=== PATIENT | male | born 1990 | race African-American/Black ===

== ENCOUNTER 2018-05-04 00:40 | Emergency (ER) | payer SELFPAY ==
[~2018-05-04] VITALS: Ht 182.8 cm; Wt 102.1 kg
== END 2018-05-04 00:51 | disposition home or self-care (01) ==
LOC: ED 00:40
DX: M79.662 Pain in left lower leg (principal)

== ENCOUNTER 2018-06-18 17:55 | Emergency (ER) | payer OTHER ==
[~2018-06-18] VITALS: Ht 182.8 cm; Wt 103.9 kg
--- NOTE | ~2018-06-18 | EKG ---
[place], [place] ELECTROCARDIOGRAM REPORT NAME: CRYSTAL RUBIN UNIT #: [id number] ROOM: DOCTOR: EPIPHANY DRAFT REPORT BIRTHDATE: [birth year] [facility] Test Date: 2018-06-18 Test Time: 17:58:59 Pat Name: CRYSTAL RUBIN Department: Room: Gender: Business Solution Analyst: María Alicia : 1990 Requested By: CHERRI PETER Order Number: [id number] Reading MD: Yohana Hendricks MD Measurements Intervals [place] Rate: 93 P: 82 FL: 141 QRS: 71 QRSD: 81 T: 35 QT: 325 QTc: 405 Interpretive Statements Sinus rhythm Left atrial enlargement ST elev, probable normal early repol pattern Baseline wander in lead(s) III No previous ECG available for comparison Electronically Signed On 06-19-2018 12:03:52 PST by Yohana Hendricks MD CM:EKGRPT:ELECTROCARDIOGRAM REPORT [id number] CHERRI PETER EPIPHANY DRAFT REPORT CHERRI PETER
[2018-06-18 18:17] LABS: BASO # 0.1 10*3/uL (0.0-0.1); BASO % 0.7 % (0.0-1.0); EOS # 0.3 10*3/uL (0.0-0.4); EOS % 3.1 % (1.0-4.0); HEMATOCRIT 51.4 % (42.0-52.0); HEMOGLOBIN 17.9 g/dl (14.0-18.0); LYMPH # 2.3 10*3/uL (1.3-4.4); LYMPH % 22.1 % (27.0-41.0); MEAN CELL VOLUME 87.7 fl (80.0-94.0); MEAN CORPUSCULAR HGB 30.5 pg (27.0-31.0); MEAN CORPUSCULAR HGB CONC 34.8 g/dl (33.0-37.0); MEAN PLATELET VOLUME 11.5 fl (9.6-12.3); MONO # 0.9 10*3/uL (0.1-1.0); MONO % 8.3 % (3.0-9.0); NEUT # 6.8 10*3/uL (2.3-7.9); NEUT % 64.6 % (47.0-73.0); PLATELET COUNT AUTOMATED 247 10*3/uL (130-400); RED BLOOD COUNT 5.86 10*6/uL (4.50-5.90); RED CELL DISTRI WIDTH 13.1 % (0-14.5); WHITE BLOOD COUNT 10.6 10*3/uL (4.8-10.8)
[2018-06-18 18:48] LABS: ALBUMIN 4.2 gm/dl (3.1-4.5); ALKALINE PHOSPHATASE 112 U/L (45-117); BUN 19 mg/dl (7-24); CHLORIDE 105 mmol/L (98-107); CREATININE 1.28 mg/dL (0.70-1.30); LIPASE 132 U/L (73-393); POTASSIUM 4.2 mmol/L (3.5-5.1); SGOT/AST 41 IU/L (3-35); SGPT/ALT 153 U/L (12-78); SODIUM 140 mmol/L (136-145); TOTAL PROTEIN 8.6 gm/dL (6.4-8.2)
[2018-06-18 18:52] LABS: TROPONIN I < 0.015 ng/ml (<0.045)
[2018-06-18] MEDS ORDERED: NAPROSYN500 MG PO (19:11)
[2018-06-18] MEDS ORDERED: CHLORZOXAZONE500 M2 PO (19:11)
== END 2018-06-18 20:00 | disposition home or self-care (01) ==
LOC: ED 17:55
PROVIDERS: Nurse Practitioner Family
DX: R07.89 Other chest pain (principal); R03.0 Elevated blood-pressure reading, without diagnosis of hypertension; R94.5 Abnormal results of liver function studies

== ENCOUNTER 2020-09-23 23:17 | Emergency (ER) | payer BC, OTHER ==
[~2020-09-23 23:17] MED LIST: CHLORZOXAZONE500 M2 PO; NAPROSYN500 MG PO
== END 2020-09-24 06:55 | disposition home or self-care (01) ==
LOC: ED 23:17
DX: T50.901A Poisoning by unspecified drugs, medicaments and biological substances, accidental (unintentional), initial encounter (principal); R40.20 Unspecified coma; Y92.89 Other specified places as the place of occurrence of the external cause